=== PATIENT | male | born 1945 | race Caucasian/White ===

== ENCOUNTER 2018-01-15 06:02 | Day surgery (SDC) | payer MEDICARE ==
[2018-01-15] MEDS ORDERED: DIPRIVAN 200 MG/20 ML IV ONE (06:03)
[2018-01-15] MEDS ORDERED: Ketamine HCl 50 MG/ML IV ONE (06:03)
[2018-01-15] MEDS ORDERED: Lactated Ringers 1,000 ML IV SCH (06:30)
[2018-01-15] MEDS ORDERED: Lactated Ringers 1,000 ML IV ONE (08:42)
--- NOTE | 2018-01-15 09:18 | OP ---
SURGERY DATE/TIME: 01/15/2018809 PREOPERATIVE DIAGNOSIS: Left lower quadrant abdominal pain. POSTOPERATIVE DIAGNOSIS: Colon polyps x4. PROCEDURE: Colonoscopy. SURGEON: Nakul Caballero M.D. ANESTHESIA: MAC by Lauri Pressley CRNA. ESTIMATED BLOOD LOSS: Minimal. SPECIMENS: Four hot forceps polypectomies. DESCRIPTION OF PROCEDURE: After informed written consent was obtained, the patient was taken to the endoscopy suite. He underwent monitored anesthesia and placed in left lateral decubitus position. A digital rectal exam showed normal sphincter tone and no internal lesions. The scope was inserted into the rectum and sequentially the entire colonic mucosa was traversed. The level of cecum was reached and verified with direct visualization of the ileocecal valve. Upon withdrawal careful mucosal inspection revealed a small sessile polyp in the descending colon which was removed in its entirety with hot forceps. Upon further withdrawal three other raised polypoid lesions were removed from the sigmoid colon area. Of note, there was some small flat areas but no raised appearance or polypoid appearance in the sigmoid colon which I discussed with the patient's family will need to be monitored with follow up scopes but will make recommendation on follow up pending results of pathology from the polyps taken today. The patient was transferred to recover room in good condition.
[2018-01-15 09:35] VITALS: BP 137/77; PULSE 68; O2SAT 99
== END 2018-01-15 09:52 | disposition home or self-care (01) ==
LOC: SDC 06:02
PROVIDERS: ATTEND Family Medicine
DX: K63.5 Polyp of colon (principal)
CPT/HCPCS: 88305; 99100; J2704

== ENCOUNTER 2021-06-27 05:44 | Day surgery (SDC) | payer MEDICARE ==
[2021-06-27] MEDS ORDERED: Lactated Ringers 1,000 ML IV SCH (06:30)
[2021-06-27] MEDS ORDERED: DIPRIVAN 200 MG/20 ML IV ONE ×2 (07:27→08:20)
[2021-06-27] MEDS ORDERED: Xylocaine-Mpf 2% 5 Ml Vial ONE (07:27)
[2021-06-27 09:29] VITALS: BP 136/98; PULSE 71; O2SAT 98
--- NOTE | 2021-06-27 10:56 | OP ---
SURGERY DATE/TIME: 06/27/2021 0739 PREOPERATIVE DIAGNOSIS: History of colon polyps. POSTOPERATIVE DIAGNOSIS: Large number of colon polyps in the transverse, sigmoid and rectal area. PROCEDURE: Colonoscopy. SURGEON: Nakul Caballero M.D. ANESTHESIA: MAC by Wolfgang Chacko CRNA. ESTIMATED BLOOD LOSS: Minimal. SPECIMENS: There were multiple hot forceps polypectomies from the transverse sigmoid and rectal area which were all sent in the same jar from the corresponding areas other than there was a larger broad based distal transverse colon polyp which was sent separately. DESCRIPTION OF PROCEDURE: After informed written consent was obtained, the patient was taken to the endoscopy suite. He was placed in left lateral decubitus position and anesthesia was titrated to desired level of consciousness. The colonoscope was inserted in the rectum and sequentially the entire colonic mucosa was traversed. The level of cecum was reached and verified with direct visualization of the ileocecal valve. Upon withdrawal there were multiple polyps in the transverse colon one of which was large and broad based in the distal transverse. It was removed with hot forceps in multiple pieces and sent to pathology. The area was hemostatic following removal. Several other areas like guzman of the transverse colon were removed and sent in a separate container just labeled "transverse colon polyps". The sigmoid colon had multiple flat polypoid lesions which were removed with hot forceps in the same fashion. All were adequately removed and good hemostasis. Upon further withdrawal, there were multiple rectal polyps likewise removed. Each of these areas had five or six polyps at least so the count is uncertain but likely near 20 polypoid lesions were removed in their entirety during the procedure. Prior to withdrawal retroflexion showed no internal lesions. The scope was removed. The patient was transferred to the recovery room in good condition.
== END 2021-06-27 09:37 | disposition home or self-care (01) ==
LOC: SDC 05:44
PROVIDERS: ATTEND Family Medicine
DX: Z12.11 Encounter for screening for malignant neoplasm of colon (principal); Z86.010 Personal history of colon polyps; K62.1 Rectal polyp; I10 Essential (primary) hypertension; D12.3 Benign neoplasm of transverse colon
CPT/HCPCS: 99100; J2704

== ENCOUNTER → 2022-10-17 | Day surgery (SDC) | payer MEDICARE ==
--- NOTE | 2022-10-09 14:28 | HP ---
DATE OF SURGERY: 10/17/2022 HISTORY OF PRESENT ILLNESS: The patient is a 77-year-old who presents with complaints of having history of colon polyps. It has been a long time since his last colonoscopy and was with Dr. Caballero. He had some left flank pain recently. He has been on antibiotics for something at some point and reports that the pain went away. He had a CT scan at some point that was pretty much unremarkable. He has been moving his bowels every day. He has a history of prostate cancer and surgery was with Dr. Deluna. He did not have any chemo or radiation for that. PAST MEDICAL HISTORY: Atrial fibrillation, pacemaker, hypertension, diabetes, hyperlipidemia. PAST SURGICAL HISTORY: Pacemaker. Appendectomy. Back surgery. Knee surgery. Rotator cuff. Colonoscopy. Prostate. ALLERGIES: NKDA. IODINATED CONTRAST MEDIA. MEDICATIONS: [place]-3, multivitamin, losartan, isosorbide mononitrate, hydrochlorothiazide, dabigatran, vitamin B12, atorvastatin, amlodipine. FAMILY HISTORY: Diabetes. Lymphoma. SOCIAL HISTORY: Current smoker. REVIEW OF SYSTEMS: CONSTITUTIONAL: Denies fever or chills. CHEST: Denies shortness of breath. CVS: Denies chest pain. ABDOMEN: Denies abdominal pain. PHYSICAL EXAMINATION: GENERAL: No acute distress. CHEST: Nonlabored. No shortness of breath. CVS: Regular rate and rhythm. ABDOMEN: Soft. IMPRESSION: History of colon polyps, history of prostate cancer. PLAN: Colonoscopy with Dr. Ricky Roman. As dictated by Karlee Mcgee NP.
[~2022-10-17] MED LIST: DIPRIVAN 200 MG/20 ML IV ONE; Lactated Ringers 1,000 ML IV ONE; Lactated Ringers 1,000 ML IV SCH
[2022-10-17 10:21] VITALS: O2SAT 98
[2022-10-17 10:39] VITALS: RESP 18
[2022-10-17 10:51] VITALS: BP 117/78; PULSE 76; TEMP 97.2
--- NOTE | 2022-10-17 10:59 | OP ---
SURGERY DATE/TIME: 10/17/2022 0921 PREOPERATIVE DIAGNOSIS: Follow up polyp. POSTOPERATIVE DIAGNOSIS: One polyp. PROCEDURE: Colonoscopy complete to cecum with hot polypectomy of a 1 cm polyp that was 2 inches above the ileocecal valve. SURGEON: Ricky Roman M.D. ANESTHESIA: MAC. COMPLICATIONS: None. CONDITION: Stable. PREP SCORE: Excellent. WITHDRAWAL TIME: Six minutes. ANTICIPATED FOLLOW UP: He will follow up one time before he is 82, five years from now. DESCRIPTION OF PROCEDURE: The patient is taken to endoscopy. Anal digital examination satisfactory. The scope advanced up to the cecum. There was a little angulation and rotation about 4 inches above the cecum but this is manipulated and transverse. Appendiceal orifice, ileocecal valve, base of the cecum normal. Coming back 2 inches there was a 1 cm polyp that was taken with hot biopsy to extinction. Circumferential withdrawal. No additional lesions noted. The patient tolerated the procedure satisfactorily. Follow up in five years.
== END ==
LOC: SDC 06:30
PROVIDERS: ATTEND Surgery
DX: Z09 Encounter for follow-up examination after completed treatment for conditions other than malignant neoplasm (principal); Z86.010 Personal history of colon polyps; Z85.46 Personal history of malignant neoplasm of prostate; K63.5 Polyp of colon
CPT/HCPCS: J2704